=== PATIENT | female | born 1970 | race Caucasian/White ===

== ENCOUNTER 2018-01-18 12:14 | Emergency (ER) | payer OTHER ==
[~2018-01-18] VITALS: Ht 198.1 cm; Wt 75.0 kg
[~2018-01-18 12:14] MED LIST: CIPROFLOXACN500 MG PO; IRON325 MG OR; TRANEXAMIC ACI650 MG PO
[2018-01-18] MEDS ORDERED: FLEXERIL5 M1 PO (12:45)
[2018-01-18] MEDS ORDERED: HYDROCO/APAP1 TA9 PO (12:45)
[2018-01-18 12:50] VITALS: BP 143/94
== END 2018-01-18 12:56 | disposition home or self-care (01) | DRG 556 ==
LOC: ED 12:14
DX: M62.838 Other muscle spasm (principal)

== ENCOUNTER → 2018-09-10 | Outpatient (REF) | payer OTHER ==
[~2018-09-10] MED LIST changes: +FLEXERIL5 M1 PO; +HYDROCO/APAP1 TA9 PO
[2018-09-10 09:29] LABS: HEMATOCRIT 40.1 % (37.0-47.0); IMMATURE GRANULOCYTES 0.2 % (0.0-5.0); MEAN CELL VOLUME 87.7 fL CALC (80.0-100.0); MEAN CORPUSCULAR HGB 28.4 pG CALC (26.0-32.0); MEAN CORPUSCULAR HGB CONC 32.4 g/L CALC (32.0-36.0); NEUT# 2.53 thou/uL (2.00-7.15); RED BLOOD COUNT 4.57 mill/uL (4.20-5.60); RED CELL DISTRI WIDTH 12.8 % (11.5-15.5)
[2018-09-10 10:19] LABS: URINE BILIRUBIN - DIPSTICK NEGATIVE (NEGATIVE); URINE BLOOD DIPSTICK TRACE-INTACT (NEGATIVE); URINE COLOR YELLOW; URINE GLUCOSE - DIPSTICK NEGATIVE (NEGATIVE); URINE KETONE NEGATIVE (NEGATIVE); URINE LEUK ESTERASE NEGATIVE (Negative); URINE NITRITE - DIPSTICK NEGATIVE (Negative); URINE PH 6.5 (4.5-8.0); URINE PROTEIN - DIPSTICK NEGATIVE (NEG-TRACE); URINE UROBILINOGEN - DIPSTICK 0.2 E.U./dL (0.2)
[2018-09-10 10:26] LABS: URINE CLARITY CLEAR
[2018-09-10 10:47] LABS: ALBUMIN 3.9 g/dL (3.2-5.0); ALKALINE PHOSPHATASE 82 u/l (38-126); ANION GAP 13 (6-22 (CALC)); BILIRUBIN, TOTAL 0.6 mg/dL (0.0-1.4); BUN 10 mg/dL (7-17); BUN/CREATININE RATIO 16 (12-20 (CALC)); CALCULATED LDLCHOLESTEROL 122 mg/dL (62-129 (CALC)); CARBON DIOXIDE 29 mmol/l (22-30); CHLORIDE 102 mmol/l (95-108); CREATININE 0.6 mg/dL (0.5-1.0); GFR > 60 ML/MIN (>=60 (CALC)); GFR FOR AFR.AMER. > 60 ML/MIN (>=60 (CALC)); HDL CHOLESTEROL 66 mg/dL (>=40); POTASSIUM 4.3 mmol/l (3.5-5.1); SGOT/AST 22 u/l (14-36); SODIUM 139 mmol/l (137-146); TOTAL CHOLESTEROL 200 mg/dl (0-199); TOTAL PROTEIN 6.8 g/dL (6.3-8.2); TRIGLYCERIDES REFLEX TO dLDL 56 mg/dl (30-149); VLDL CHOLESTROL 11 mg/dl (1-41 (CALC))
[2018-09-10 11:10] LABS: TSH, 3RD GENERATION 1.67 uIU/mL (0.47 - 4.68)
== END | disposition home or self-care (01) | DRG 951 ==
LOC: LAB 09:09
PROVIDERS: ATTEND Family Medicine
DX: Z00.00 Encounter for general adult medical examination without abnormal findings (principal)

== ENCOUNTER → 2018-10-10 | Outpatient (REF) ==
[2018-10-10 10:29] LABS: CHOLESTEROL HDL RATIO 2.6 (<4.4 (CALC))
== END | disposition home or self-care (01) | DRG 951 ==
LOC: LAB 09:40
PROVIDERS: ATTEND Family Medicine
DX: Z02.6 Encounter for examination for insurance purposes (principal)

== ENCOUNTER 2021-06-21 06:05 | Day surgery (SDC) | payer OTHER ==
[~2021-06-21] VITALS: Ht 167.6 cm; Wt 77.1 kg
[~2021-06-21 06:05] MED LIST changes: +B COMPLE2 PO; +MULTIVITAMI9 PO; +VITAMIN D35000 UNI1 PO; +WELLBUTRIN XL300 MG PO
[2021-06-21 08:12] VITALS: BP 163/104
== END 2021-06-21 08:23 | disposition home or self-care (01) | DRG 392 ==
LOC: ENDO 06:05 → ORM 11:50 → ENDO 11:50 → ORM 12:55
PROVIDERS: ATTEND Surgery
PROC: 0DJD8ZZ Inspection of Lower Intestinal Tract, Via Natural or Artificial Opening Endoscopic (ICD-10-PCS; principal; 2021-06-21)
DX: R19.5 Other fecal abnormalities (principal)